=== PATIENT | female | born 2000 | race Caucasian/White ===

== ENCOUNTER 2020-05-28 18:41 | Emergency (ER) | payer BC, OTHER ==
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
--- NOTE | 2020-05-28 20:06 | XR ---
EXAMINATION TYPE: XR knee complete LT DATE OF EXAM: 05/28/2020 COMPARISON: NONE HISTORY: Pain TECHNIQUE: 3 views FINDINGS: I see no fracture nor dislocation. Knee joint spaces are normal. There is no sign of knee j oint effusion. Soft tissues appear normal. IMPRESSION: Negative left knee exam. No fracture.
[2020-05-28] MEDS ORDERED: CYCLOBENZAPRINE 10MG STARTER 3 TAB BTL PO STA (20:33)
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
[2020-05-28 20:43] VITALS: RESP 18
[2020-05-28 20:46] VITALS: BP 131/77; PULSE 99; TEMP 98.1
== END 2020-05-28 20:45 | disposition home or self-care (01) ==
LOC: EC 18:41
DX: M25.562 Pain in left knee (principal); R07.89 Other chest pain; Z88.0 Allergy status to penicillin; V43.52XA Car driver injured in collision with other type car in traffic accident, initial encounter; Y92.410 Unspecified street and highway as the place of occurrence of the external cause
CPT/HCPCS: 70450; 71046; 72125; 99284